=== PATIENT | female | born 1990 | race Hispanic/Latino ===

== ENCOUNTER 2016-06-19 14:58 | Emergency (ER) | payer SELFPAY | END 2016-06-19 15:41 | disposition home or self-care (01) | LOC: NAV ERS 14:58 | DX: N76.4 Abscess of vulva (principal); F32.9 Major depressive disorder, single episode, unspecified; F41.9 Anxiety disorder, unspecified | CPT/HCPCS: 87070; 87077; 87186; 87205; 99283 ==